=== PATIENT | female | born 1975 | race Caucasian/White ===

== ENCOUNTER → 2024-01-08 13:32 | Outpatient (REF) | payer BC, SELFPAY | LOC: WDC 13:32 | PROVIDERS: ATTENDING PHYSICIAN Obstetrics & Gynecology | DX: Z12.31 Encounter for screening mammogram for malignant neoplasm of breast (principal) | CPT/HCPCS: 77063; 77067 ==

== ENCOUNTER → 2024-11-08 06:44 | Outpatient (REF) | payer BC, SELFPAY | LOC: HWRAD 06:44 | PROVIDERS: ATTENDING PHYSICIAN Nurse Practitioner Adult Health | DX: R10.11 Right upper quadrant pain (principal) | CPT/HCPCS: 76700 ==

== ENCOUNTER → 2024-11-19 07:54 | Outpatient (REF) | payer BC, SELFPAY | LOC: HWRAD 07:54 | PROVIDERS: ATTENDING PHYSICIAN Nurse Practitioner Adult Health | DX: R10.9 Unspecified abdominal pain (principal); R79.89 Other specified abnormal findings of blood chemistry; R71.8 Other abnormality of red blood cells | CPT/HCPCS: 76770 ==

== ENCOUNTER → 2025-02-01 07:05 | Outpatient (REF) | payer BC, SELFPAY | LOC: PAVMRI 07:05 | PROVIDERS: ATTENDING PHYSICIAN Nurse Practitioner; FAMILY PHYSICIAN Nurse Practitioner Adult Health | DX: K76.89 Other specified diseases of liver (principal) | CPT/HCPCS: 74183; A9575 ==

== ENCOUNTER → 2025-06-03 14:23 | Outpatient (REF) | payer BC, SELFPAY | LOC: WDC 14:23 | PROVIDERS: ATTENDING PHYSICIAN Obstetrics & Gynecology; FAMILY PHYSICIAN Nurse Practitioner Adult Health | DX: Z12.31 Encounter for screening mammogram for malignant neoplasm of breast (principal) | CPT/HCPCS: 77063; 77067 ==